=== PATIENT | female | born 1990 | race Caucasian/White ===

== ENCOUNTER 2019-08-09 23:29 | Emergency (ER) | payer BC, SELFPAY ==
[2019-08-09 23:35] VITALS: BP 142/84; PULSE 86; RESP 18; TEMP 36.5; O2SAT 98
[2019-08-09 23:42] VITALS: BP 142/84; PULSE 86; RESP 18; TEMP 36.5; O2SAT 98
--- NOTE | 2019-08-09 23:47 | W.ED.GENAD ---
Discharge Plan Disposition Patient Disposition: HOME Condition: Good Discharge Details Chief Complaint: Abd Prob Clinical Impression: Biliary colic Primary Care Provider: Lynette العلي ED Provider: Rupesh Rendon Home Meds and New Rx's Prescriptions: No Action No Known Home Meds RF: 0 Discharge Instructions Instructions: Biliary Colic (ED) Additional Instructions: At this time since her pain is completely resolved it is likely that you had a spasm of your gallbladder from the small stones that are in their in the fatty foods that were consumed earlier today. Please do your best to avoid any fatty or greasy foods during her . You have been doing a great job with weight loss and healthy eating, continue to keep this up. Drink plenty of fluids. You can take 1000 mg of Tylenol if needed for pain if it does return. Do not hesitate to call me here in the ED if you have any concerns or return of your symptoms. If you notice any worsening of your symptoms, or any new symptoms such as vomiting, diarrhea, fever, chills, shortness of breath, chest pain, numbness, weakness, or fainting , please return immediately to the emergency department for reevaluation. Please follow up with your primary care provider as soon as possible for reassessment and reevaluation. As always, it was a pleasure participating in your medical care today. Medical Decision Making 29-year-old female who is currently 8 to 10 weeks , uncertain on the age, who presents with brief episode of epigastric pain that happened about an hour ago. Patient states that over the last year or so she has lost 40 pounds, she has been eating healthy, however tonight she was at a barbecue and she ate greasy burgers, potato salad, and then roughly 45 minutes to an hour before her symptoms came on she also had a notably greasy and large amount of buffalo wing sauce/dip. Roughly 30 to 45 minutes after ingesting that last bit she had what she describes as a twisty crampy-like pain in the right upper quadrant with slight radiation to the left. As the pain continued came to the ER for further evaluation but prior to arrival here she had complete resolution of her symptoms. She states that it did slightly radiate to her back on the right. She had some nausea but no vomiting. She denies fever chills diarrhea numbness tingling or weakness. She does have a family history of gallstones. She denies any other abdominal surgeries, urinary complaints, vaginal discharge, pelvic pain. Physical exam demonstrates nontender abdomen, no pain at McBurney's point, negative Rodriguez sign. No pelvic tenderness or epigastric tenderness whatsoever on exam. Stable vital signs, no flank or CVA tenderness. Bedside ultrasound shows intrauterine , right upper quadrant bedside limited ultrasound demonstrates normal gallbladder, nondistended, negative sonographic Rodriguez sign, about 6-8 very small gallstones are present, gallbladder wall thickness less than 3 mm., Gallbladder wall diameter less than 4 cm. No pericholecystic fluid. No clinical evidence on exam of acute cholecystitis on exam, and as her symptoms have completely resolved I suspect she had mild episode of biliary colic secondary to the gallstones and the greasy food. This time no current indication for emergent labs or imaging. Patient is asymptomatic. Will be discharged home with recommendations for avoiding fatty and greasy foods, continuing with her healthy diet, recommending close follow-up with her OB. I have extensively reviewed the treatment plan and discharge instructions with the patient. I have addressed all patient concerns at this time. The patient was made aware of what symptoms to monitor for that would warrant a return to the emergency department. Discussed the plan with the patient, they demonstrate verbal understanding and agreement with our assessment and plan at this time. HPI General Date/Time Provider Initiated Documentation: 08/09/19 23:30. HPI Narrative: 29-year-old female who is currently 8 to 10 weeks , uncertain on the age, who presents with brief episode of epigastric pain that happened about an hour ago. Patient states that over the last year or so she has lost 40 pounds, she has been eating healthy, however tonight she was at a barbecue and she ate greasy burgers, potato salad, and then roughly 45 minutes to an hour before her symptoms came on she also had a notably greasy and large amount of buffalo wing sauce/dip. Roughly 30 to 45 minutes after ingesting that last bit she had what she describes as a twisty crampy-like pain in the right upper quadrant with slight radiation to the left. As the pain continued came to the ER for further evaluation but prior to arrival here she had complete resolution of her symptoms. She states that it did slightly radiate to her back on the right. She had some nausea but no vomiting. She denies fever chills diarrhea numbness tingling or weakness. She does have a family history of gallstones. She denies any other abdominal surgeries, urinary complaints, vaginal discharge, pelvic pain. Related Data Home Medications Medication Instructions Recorded Confirmed Unknown [No Known Home Meds] 08/09/19 08/09/19 Allergies Allergy/AdvReac Type Severity Reaction Status Date / Time No Known Allergies Allergy Unverified 08/09/19 23:40 General Stated Complaint: Abd Prob LYNNE: 3 Review of Systems All systems reviewed & are unremarkable except as noted in HPI and below [facility] Social History Smoking/Tobacco Use Status: Never Alcohol Intake: never Substance use type: does not use Do you feel safe at home: Yes Do you feel safe in your relationship?: Yes Exam Narrative Exam Narrative: 1.Const: Well-nourished, Well-developed, appearing stated age, mildly obese 2.Eyes: PERRL, no conjunctival injection, and symmetrical lids. 3.ENT: Atraumatic external nose and ears. Moist MM. Neck: Symmetric, trachea midline, No thyromegaly. 4.CVS: +S1/S2, No murmurs or gallops. Peripheral pulses 2+ and equal in all extremities. Brisk capillary refill in all extremities. 5.RESP: Unlabored respiratory effort. Clear to auscultation bilaterally. No wheezes rales or rhonchi 6.GI: Soft, Nontender/Nondistended, No hepatosplenomegaly. No guarding or rebound. No pain at McBurney's point, negative Rodriguez sign. Bedside ultrasound shows intrauterine . 7.MSK: Normocephalic/Atraumatic, Extremities w/o deformity or ttp No cyanosis or clubbing, Normal movement of all extremities 8.Skin: Warm, Dry. No rashes or lesions. 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 Sensation grossly intact, no focal neurologic deficits. 10.Psych: (AAO) x3. Appropriate mood and affect Course Vital Signs Vital signs: Vital Signs Temperature 36.5 C 08/09/19 23:35 Pulse 86 08/09/19 23:35 Respiratory Rate 18 08/09/19 23:35 Blood Pressure 142/84 H 08/09/19 23:35 Pulse Oximetry 98 08/09/19 23:35 Temperature 36.5 C 08/09/19 23:42 Temperature Source Skin 08/09/19 23:35 Pulse 86 08/09/19 23:42 Respiratory Rate 18 08/09/19 23:42 Respiratory Effort Non-Labored 08/09/19 23:41 Blood Pressure 142/84 H 08/09/19 23:42 Blood Pressure Position Supine 08/09/19 23:35 Pulse Oximetry 98 08/09/19 23:42 Oxygen Delivery Method Room Air 08/09/19 23:35 Oxygen Flow Rate 0 08/09/19 23:35 Pain Level 0 08/09/19 23:42
== END 2019-08-10 | disposition home or self-care (01) ==
PROVIDERS: Emergency Provider Student in an Organized Health Care Education/Training Program; PCP Internal Medicine
DX: K80.20 Calculus of gallbladder without cholecystitis without obstruction (principal); R10.13 Epigastric pain; O99.611 Diseases of the digestive system complicating pregnancy, first trimester; Z3A.10 10 weeks gestation of pregnancy
CPT/HCPCS: 99282; 99283

== ENCOUNTER 2021-07-20 00:18 | Emergency (ER) | payer OTHER, SELFPAY ==
[2021-07-20 00:27] VITALS: BP 138/92; PULSE 95; RESP 18; TEMP 36.7; O2SAT 98
--- NOTE | 2021-07-20 00:44 | ED.GENADUL_ITS ---
Discharge Plan Disposition Patient Disposition: HOME Condition: Stable Discharge Details Clinical Impression: Abdominal pain Primary Care Provider: Lynette العلي ED Provider: Jame Combs Home Meds and New Rx's Prescriptions: Continued norgestimate-ethinyl estradiol [Sprintec (28)] 0.25-35 mg-mcg tablet 0.25 - 35 tab PO DAILY Label Comments: TAKE 1 TABLET BY MOUTH ONCE DAILY sertraline 50 mg tablet 50 tab PO DAILY Label Comments: TAKE 1 TABLET BY MOUTH ONCE DAILY FOR 90 DAYS Discharge Instructions Instructions: Abdominal Pain (ED) Additional Instructions: your exam and lab work did not show any concerning findings at this time follow up with your primary care provider and general surgeon if you feel more ill, have severe worsening pain or persistent vomit return to the emergency department Medical Decision Making 30 yo female who states she has had intermittent episodes of upper abdomen pain for years, has only been seen here for it and had bedside u/s that was reassuring, comes in with another similar episode. She states she went to bed feeling well and woke up with upper stabbing abdomen pain and radiated to the back. She also had nausea, no vomit. She came here and now states the pain and nausea are gone and has no symptoms. Denies chest pain, dyspnea, fevers, chills. She denies prior surgeries, no alcohol or drug use. She is in no distress on exam. She has no abdomen tenderness, no guarding or rebound. Given brevity of her symptoms suspect this could have been a spasm of the gallbladder and less likely biliary colic, given pain resolved unlikely pancreatitis or cholecystitis. Will check lfts, bilirubin and lipase and reassess. labs unremarkable and she remains stable and still has no abdominal tenderness. Given reassuring exam and labs discussed with pt and will defer CT. Offered to have her return to have formal radiology u/s but she declined as she states her pcp has put in for a surgery consult and wants to have that done first. Discussed following up with her pcp and surgeon and return precautions given Differential Diagnosis Differential Diagnosis: biliary colic, spasm, pancreatitis Medical Records Medical records reviewed: Yes I reviewed the patient's medical records. Lab Data Lab results reviewed: Yes I reviewed the patient's lab results. HPI General Mode of arrival: ambulatory . Date/Time Provider Initiated Documentation: 07/20/21 00:19 . Limitations to Documentation: no limitations . Information obtained by: patient . History of Present Illness 30 year old F presents to the emergency department with the chief complaint of abdomen pain, described as moderate, Quality is described as stabbing, and is localized to the abdomen. Patient started experiencing this hour(s) (1) and it has been now resolved. No relieving factors improve symptom(s), No exacerbating factors reported . Patient notes other (nausea); denies chest pain and fever/chills. Patient did receive the following treatments prior to arrival, none Related Data Home Medications Medication Instructions Recorded Confirmed norgestimate 0.25 mg-ethinyl 0.25 - 35 tab PO DAILY 07/20/21 07/20/21 estradiol 35 mcg tablet (Sprintec (28)) sertraline 50 mg tablet 50 tab PO DAILY 07/20/21 07/20/21 Allergies Allergy/AdvReac Type Severity Reaction Status Date / Time No Known Allergies Allergy Unverified 07/20/21 00:30 General Stated Complaint: Abd Prob LYNNE: 3 Review of Systems All systems reviewed & are unremarkable except as noted in HPI and below Constitutional Constitutional: Denies chills, Denies fever(s) and Denies weakness Cardiovascular Cardiovascular: Denies chest pain and Denies dyspnea Respiratory Respiratory: Denies cough and Denies dyspnea Gastrointestinal Gastrointestinal: Denies vomiting Genitourinary Genitourinary: Denies dysuria Neurologic Neurologic: Denies weakness PFSH All Active Problems (Updated 07/20/21 @ 01:31 by aJme Combs MD) Abdominal pain (Acute) Social History Smoking/Tobacco Use Status: Never Smoking risk assessment performed?: Yes Alcohol Intake: never Substance use type: does not use Do you feel safe at home: Yes Do you feel safe in your relationship?: Yes Exam Const General: no acute distress Orientation: alert HENMT Head: normal to inspection Ears: external ears normal General nose exam: external nose normal Mouth: moist mucous membranes Eyes General: appearance normal, both eyes and all related structures Neck Neck: normal visual inspection Resp Effort & Inspection: normal respiratory effort and able to speak in complete sentences Cardio Rate: regular rate GI Palpation: soft and nontender Skin General skin exam: no rashes or lesions noted Neuro General: patient alert and patient oriented x3 Extrem General: normal to inspection Psych Mental Status: mental status grossly normal Course Vital Signs Vital signs: Vital Signs Temperature 36.7 C 07/20/21 00:27 Pulse 95 H 07/20/21 00:27 Respiratory Rate 18 07/20/21 00:27 Blood Pressure 138/92 H 07/20/21 00:27 Pulse Oximetry 98 07/20/21 00:27 Temperature 36.7 C 07/20/21 00:27 Temperature Source Skin 07/20/21 00:27 Pulse 95 H 07/20/21 00:27 Respiratory Rate 18 07/20/21 00:27 Respiratory Effort 07/20/21 00:32 Blood Pressure 138/92 H 07/20/21 00:27 Blood Pressure Position Sitting 07/20/21 00:27 Pulse Oximetry 98 07/20/21 00:27 Oxygen Delivery Method Room Air 07/20/21 00:27 Oxygen Flow Rate 0 07/20/21 00:27 Pain Level 1 07/20/21 00:33 PAWSS Have you Been Recently Intoxicated or Drunk Within the Last 30 days?: No Have you Ever Experienced Previous Episodes of Alcohol Withdrawal?: No Have you ever Experienced Withdrawal Seizures?: No Have you ever Experienced Delirium Tremens(DT)s?: No Have you ever undergone Alcohol Rehabilitation Treatment (i.e, inpt ot outpatient treatment programs)?: No Have you ever Experienced Blackouts?: No Have you ever Combined Alcohol with other Downers within the last 90 days?: No Have you ever Combined Alcohol with any other Substance of Abuse during the last 90 days?: No Positive Blood Alcohol level on Presentation? [PCS.BAL]: No Evidence of Increased Autonomic Activity (i.e. HR>120, tremor, sweating, agitation, nausea)?: No Result: 0
[2021-07-20 01:01] LABS: Abs Immature Grans 0.04 10^3/uL (0.0-0.06); Absolute Basophil Count 0.03 10^3/uL (0.0-0.2); Absolute Eosinophil Count 0.07 10^3/uL (0.0-0.7); Absolute Lymphocyte Count 3.46 10^3/uL (1.2-3.4); Absolute Monocyte Count 0.53 10^3/uL (0.1-0.8); Absolute Neutrophil Count 5.74 10^3/uL (1.2-6.7); Basophils % 0.3; Eosinophils % 0.7; HCT 38.5 % (36.0-46.0); HGB 12.9 g/dL (11.2-15.7); Immature Grans % 0.4; Lymphocytes % 35.1; MCHC 33.5 % (32.0-36.0); MCV 84 fL (80-95); MPV 9.2 fL (8.0-11.0); Monocytes % 5.4; Neutrophils % 58.1; Platelet Count 259 10^3/uL (130-400); RDW 12.2 % (11.7-14.6); RDW-SD 36.7 fL; WBC 9.87 10^3/uL (4.4-10.8)
[2021-07-20 01:14] LABS: ALT 16 U/L (14-59); AST 10 U/L (15-37); Albumin 3.2 g/dL (3.4-5.0); Alkaline Phosphatase 43 U/L (46-116); Anion Gap 6.2 mmol/L (3-11); BUN 11 mg/dL (7-18); Bilirubin, Direct 0.1 mg/dL (0.0-0.2); Bilirubin, Total 0.2 mg/dL (0.2-1.0); CO2 28.8 mmol/L (21.0-32.0); CREATININE 0.9 mg/dL (0.55-1.02); Calcium 8.6 mg/dL (8.5-10.1); Chloride 104 mmol/L (98-107); Glucose 156 mg/dL (74-106); Lipase 75 U/L (73-393); Potassium 3.8 mmol/L (3.5-5.1); Sodium 139 mmol/L (136-145); Total Protein 6.9 g/dL (6.4-8.2)
[2021-07-20 01:22] LABS: Bilirubin Negative (Negative); Blood Negative (Negative); Clarity Clear (Clear); Glucose Negative (Negative); Ketones Negative (Negative); Leukocyte Esterase Negative (Negative); Nitrite Negative (Negative); Specific Gravity 1.025 (1.005-1.025); Urobilinogen 0.2 EU/dL (Up TO 0.2); pH 6.5 (5-8)
== END 2021-07-20 02:19 | disposition home or self-care (01) ==
PROVIDERS: Emergency Provider Emergency Medicine; PCP Internal Medicine
DX: R10.10 Upper abdominal pain, unspecified (principal)
CPT/HCPCS: 80053; 81025; 83690; 99282; 81003; 82248; 85025

== ENCOUNTER 2021-07-31 03:14 | Emergency (ER) | payer OTHER, SELFPAY ==
[2021-07-31 03:18] VITALS: BP 129/81; PULSE 72; RESP 16; TEMP 36.2; O2SAT 100
--- NOTE | 2021-07-31 03:28 | ED.GENADUL_ITS ---
Discharge Plan Disposition Patient Disposition: HOME Condition: Good Discharge Details Chief Complaint: Abd Prob Clinical Impression: Biliary colic Primary Care Provider: Lynette العلي ED Provider: Rupesh Rendon Home Meds and New Rx's Prescriptions: No Action norgestimate-ethinyl estradiol [Sprintec (28)] 0.25-35 mg-mcg tablet 0.25 - 35 tab PO DAILY Label Comments: TAKE 1 TABLET BY MOUTH ONCE DAILY sertraline 50 mg tablet 50 tab PO DAILY Label Comments: TAKE 1 TABLET BY MOUTH ONCE DAILY FOR 90 DAYS Discharge Instructions Instructions: Biliary Colic (ED), Gallstones (ED) Additional Instructions: At this time your symptoms appear to be consistent with an episode of gallbladder spasm. Please take Motrin/ibuprofen at home. You can take 800 mg every 6 hours. Please follow-up closely with your surgeon at your scheduled appointment. As we discussed together please continue to avoid any fatty, greasy, or dairy-based products. If you notice any worsening of your symptoms, or any new symptoms such as vomiting, diarrhea, fever, chills, shortness of breath, chest pain, numbness, weakness, or fainting , please return immediately to the emergency department for reevaluation. Please follow up with your primary care provider as soon as possible for reassessment and reevaluation. As always, it was a pleasure participating in your medical care today. Referrals: Lynette العلي [Primary Care Provider] - Medical Decision Making This is a 31-year-old female with a past medical history of previous biliary colic, BMI of 40, who is on control, who presents today for evaluation of right upper quadrant pain. Patient states that at about 11:30 PM she developed sharp stabbing right upper quadrant pain that occurred after she began eating ice cream. Patient has been avoiding all fatty and greasy foods otherwise in her diet, but states that she has been eating and occasional ice cream during the summer which is brought about the symptoms. She had identical symptoms about 2 weeks ago after ice cream as well. She has a scheduled appointment with a local surgeon for discussion of her gallbladder later this month. She has taken Tylenol without any improvement of her symptoms. She denies any other complaints at this time. No other modifying factors. Physical exam demonstrates mild right upper quadrant tenderness. No signs of an acute surgical abdomen. Bedside limited ultrasound demonstrates small amount of biliary sludge and gallstones. Gallbladder with on short axis is 3 cm, gallbladder wall with is 2.8 mm. Symptoms inconsistent with acute cholecystitis. Discussed risks and benefits of imaging/CT imaging there is no formal ultrasonography is available at this time. Patient would like to hold off on CT imaging currently. We will get basic labs, evaluate for biliary function, treat the patient's pain, monitor closely and reassess. 4:38 AM Patient's laboratory work-up has returned normal. Patient feels well. Abdominal pain has completely resolved. Patient feels comfortable going home. Repeat exam continues to show no signs of an acute surgical abdomen. Now she has no right upper quadrant tenderness. Negative Rodriguez sign. Symptoms at this time are consistent with biliary spasm or colic and have now resolved. Recommend continued close outpatient follow-up with surgery. No indication for emergent imaging at this time. Discussed importance of dietary changes. I have extensively reviewed the treatment plan and discharge instructions with the patient. I have addressed all patient concerns at this time. The patient was made aware of what symptoms to monitor for that would warrant a return to the emergency department. Discussed the plan with the patient, they demonstrate verbal understanding and agreement with our assessment and plan at this time. The documentation in this chart was dictated using [employer] dictation software. Please excuse any dictation errors. HPI General Date/Time Provider Initiated Documentation: 07/31/21 03:15 . HPI Narrative: This is a 31-year-old female with a past medical history of previous biliary colic, BMI of 40, who is on control, who presents today for evaluation of right upper quadrant pain. Patient states that at about 11:30 PM she developed sharp stabbing right upper quadrant pain that occurred after she began eating ice cream. Patient has been avoiding all fatty and greasy foods otherwise in her diet, but states that she has been eating and occasional ice cream during the summer which is brought about the symptoms. She had identical symptoms about 2 weeks ago after ice cream as well. She has a scheduled appointment with a local surgeon for discussion of her gallbladder later this month. She has taken Tylenol without any improvement of her symptoms. She denies any other complaints at this time. No other modifying factors. Related Data Home Medications Medication Instructions Recorded Confirmed norgestimate 0.25 mg-ethinyl 0.25 - 35 tab PO DAILY 07/20/21 07/31/21 estradiol 35 mcg tablet (Sprintec (28)) sertraline 50 mg tablet 50 tab PO DAILY 07/20/21 07/31/21 Allergies Allergy/AdvReac Type Severity Reaction Status Date / Time No Known Allergies Allergy Unverified 07/31/21 03:21 General Stated Complaint: Abd Prob LYNNE: 3 Review of Systems All systems reviewed & are unremarkable except as noted in HPI and below PFSH All Active Problems (Updated 07/31/21 @ 04:40 by Rupesh Rendon DO) Abdominal pain (Acute) Biliary colic (Acute) Social History Smoking/Tobacco Use Status: Never Smoking risk assessment performed?: Yes Alcohol Intake: never Substance use type: does not use Do you feel safe at home: Yes Do you feel safe in your relationship?: Yes Exam Narrative Exam Narrative: 1.Const: Well-nourished, Well-developed, appearing stated age 2.Eyes: PERRL, no conjunctival injection, and symmetrical lids. 3.ENT: Atraumatic external nose and ears. Moist MM. Neck: Symmetric, trachea midline, No thyromegaly. 4.CVS: +S1/S2, No murmurs or gallops. Peripheral pulses 2+ and equal in all extremities. Brisk capillary refill in all extremities. 5.RESP: Unlabored respiratory effort. Clear to auscultation bilaterally. No wheezes rales or rhonchi 6.GI: Soft, nondistended. No guarding or rebound. Mild right upper quadrant tenderness on deep palpation. Negative sonographic Rodriguez sign. No pain at McBurney's point. 7.MSK: Normocephalic/Atraumatic, Extremities w/o deformity or ttp No cyanosis or clubbing, Normal movement of all extremities 8.Skin: Warm, Dry. No rashes or lesions. 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 Sensation grossly intact, no focal neurologic deficits. 10.Psych: (AAO) x3. Appropriate mood and affect Course Vital Signs Vital signs: Vital Signs Temperature 36.2 C L 07/31/21 03:18 Pulse 72 07/31/21 03:18 Respiratory Rate 16 07/31/21 03:18 Blood Pressure 129/81 07/31/21 03:18 Pulse Oximetry 100 07/31/21 03:18 Temperature 36.2 C L 07/31/21 03:18 Temperature Source Skin 07/31/21 03:18 Pulse 72 07/31/21 03:18 Respiratory Rate 16 07/31/21 03:18 Respiratory Effort Non-Labored 07/31/21 03:22 Blood Pressure 129/81 07/31/21 03:18 Pulse Oximetry 100 07/31/21 03:18 Pain Level 9 07/31/21 03:18
[2021-07-31] MEDS: Ketorolac 15 MG/ML VIAL IVP (03:43)
[2021-07-31] MEDS: MORPHine 4 MG/ML SYR IVP (03:43)
[2021-07-31] MEDS: Normal Saline 1,000 ML 1000 ML IV (03:44)
[2021-07-31 04:06] LABS: ALT 14 U/L (14-59); AST 11 U/L (15-37); Abs Immature Grans 0.03 10^3/uL (0.0-0.06); Absolute Basophil Count 0.03 10^3/uL (0.0-0.2); Absolute Eosinophil Count 0.04 10^3/uL (0.0-0.7); Absolute Lymphocyte Count 2.29 10^3/uL (1.2-3.4); Absolute Monocyte Count 0.41 10^3/uL (0.1-0.8); Absolute Neutrophil Count 7.01 10^3/uL (1.2-6.7); Albumin 3.2 g/dL (3.4-5.0); Alkaline Phosphatase 47 U/L (46-116); Anion Gap 9.3 mmol/L (3-11); BUN 8 mg/dL (7-18); Basophils % 0.3; Bilirubin, Total 0.2 mg/dL (0.2-1.0); CO2 24.7 mmol/L (21.0-32.0); CREATININE 0.9 mg/dL (0.55-1.02); Calcium 8.5 mg/dL (8.5-10.1); Chloride 103 mmol/L (98-107); Eosinophils % 0.4; Glucose 154 mg/dL (74-106); HCT 38.2 % (36.0-46.0); Immature Grans % 0.3; Lipase 62 U/L (73-393); Lymphocytes % 23.3; MCV 82 fL (80-95); MPV 9.2 fL (8.0-11.0); Monocytes % 4.2; Neutrophils % 71.5; Platelet Count 267 10^3/uL (130-400); Potassium 3.9 mmol/L (3.5-5.1); RBC 4.65 10^6/uL (3.93-5.22); RDW 12.1 % (11.7-14.6); RDW-SD 36.3 fL; Sodium 137 mmol/L (136-145); Total Protein 7.2 g/dL (6.4-8.2); WBC 9.81 10^3/uL (4.4-10.8)
[2021-07-31 04:43] VITALS: BP 147/94; PULSE 89; RESP 18; O2SAT 98
== END 2021-07-31 04:48 | disposition home or self-care (01) ==
PROVIDERS: Emergency Provider Student in an Organized Health Care Education/Training Program; PCP Internal Medicine
DX: K80.50 Calculus of bile duct without cholangitis or cholecystitis without obstruction (principal)
CPT/HCPCS: 80053; 83690; 96361; 96374; 96375; 85025; J1885; J2270

== ENCOUNTER 2021-09-04 02:54 | Outpatient (CLI) | payer OTHER, SELFPAY ==
[2021-09-04 12:46] LABS: Source Nasal/Nares
[2021-09-04 15:37] LABS: COVID-19 PCR Negative (Negative)
== END 2021-09-04 02:55 | disposition home or self-care (01) ==
PROVIDERS: PCP Internal Medicine; Visit Provider Surgery
DX: Z20.822 Contact with and (suspected) exposure to COVID-19 (principal); Z01.818 Encounter for other preprocedural examination
CPT/HCPCS: 87635

== ENCOUNTER 2021-09-06 07:52 | Day surgery (SDC) | payer OTHER, SELFPAY ==
[2021-09-06] VITALS (9 sets, daily range): BP systolic 119–140; BP diastolic 60–88; PULSE 78–100; RESP 16–27; TEMP 36.5–36.6; O2SAT 93–99; BMI 40.6
--- NOTE | 2021-09-06 06:21 | W.PM.OP ---
Date of service: 09/06/21 Time of Service: 11:31 Operative Note Operative Note DATE OF PROCEDURE: 09/06/21 PRE-OP DIAGNOSIS: Biliary Colic POST-OP DIAGNOSIS: same PROCEDURE: Laparoscopic Cholecystectomy SURGEON: Fior Esparza ADVERTISING ACCOUNT EXECUTIVE: Jennifer Banda Refer to Anesthesia Record ESTIMATED BLOOD LOSS: 25 PATHOLOGY: other (gallbladder) COMPLICATIONS: None Patient's condition: stable Indications: Ms. Elizabeth is a pleasant 31-year-old female with biliary colic.? The episodes of pain have become more frequent and also are lasting upwards of 3 hours.? She has been in the emergency department twice over the last few months.? I discussed the procedure with her in detail and reasons that I would go from laparoscopic to open.? We reviewed the risks, benefits and complications.? We discussed postcholecystectomy diarrhea as well as cholecystectomy syndrome.? These are both rare complications.? I did discuss with her that at this time the cholecystectomy has not emergent.? We would do this for chronic comfort.? Because she has been in the ER twice now she would like to proceed with laparoscopic cholecystectomy. Risks, benefits, complications were reviewed with the patient in the office.? Complications include but are not limited to bleeding, infection, injury to stomach, small bowel and large bowel, injury to the pancreas, injury to the common bile duct necessitating drainage and referral to tertiary center for repair, bile leak, adverse reactions to the medications, complications of intubation including a sore throat or injury to the uvula, ID, stroke and even .? Questions were entertained and answered to her satisfaction and she wished to proceed.? No guarantees were given or implied. Proceed with laparoscopic cholecystectomy Findings: adhesions of omentum to the galbladder Procedure Description: After informed consent was obtained the patient was brought to the operating room, placed in a supine position and monitors were applied. SCDs were applied to her lower extremities and she was placed under general anesthesia and intubated without difficulty. Her abdomen was then prepped and draped in a sterile fashion using ChloraPrep. At this point a timeout was done and the patient's name, date of , procedure type, allergies to medications, metal in her body, antibiotic and DVT prophylaxis, and fire risk was assessed. At this point 0.25% Bupivocaine was injected just above the umbilicus into the dermis and subcutaneous tissue. A 5 mm incision was made with an 11 blade. The skin next to the incision was grasped with penetrating towel clamps and while pulling up on the skin a 5 mm port was placed under direct visualization. The abdomen was insuflated and then 3 more ports were placed. A 12 mm port was placed in the subxiphoid area and two 5 mm ports were placed in the right upper quadrant. The liver was inspected and looked normal. The patient's bed was then turned to the left and her head was brought up. The gallbladder was grasped at the body and pushed towards the right shoulder, this allowed me to visualize the neck of the gallbladder. The neck was grasped and pulled towards the right flank and down allowing me to visualize the lymph node. Using a [place] dissector with cautery the lymph node was gently dissected away from the tissues and the fatty tissue was also dissected away. The cystic duct was identified it was normal in size. The duct was dissected 360 degrees using the [place] dissector in order for me to visualize its entrance into the gallbladder. Liver was noted behind it. There were no other structures right behind. Critical view was achieved. 3 clips were placed one proximal and 2 distal and the cystic duct was cut. The cystic artery was then identified and dissected 360 degrees. It was located just medial and posterior to the cystic duct. It was visualized going into the gallbladder. Once dissected 3 more clips were placed one proximal and 2 distal and the artery was cut. Using the hook dissector the gallbladder was then dissected away from the liver bed and placed into an Endo Catch bag and pulled through the 12 mm port site. The 12 mm port was placed back into the abdomen under direct visualization. The liver bed was inspected no bleeding was noted. The abdomen was then irrigated with a liter of normal saline until the effluent was clear. Once all the fluid was suctioned out, the 12 mm and the 2 right upper quadrant ports were removed under direct visualization and no bleeding was noted from the fascia. The abdomen was deflated completely and lastly the umbilical port was removed. The skin was cleaned and the incisions were closed with 4-0 Vicryl. The skin was dried and skin affix was applied over the closed incisions. Needle, instrument and sponge counts were correct at the end of the case. At this point the patient was woken up, extubated and taken back to recovery in stable condition. There were no immediate complications.
--- NOTE | 2021-09-06 06:25 | W.PM.DSUDISC ---
Discharge Plan Disposition Patient Disposition: HOME Condition: Good Discharge Details Reason For Visit: Laparoscopic Cholecystectomy Attending Provider: Fior Esparza Primary Care Provider: Lynette العلي Home Meds and New Rx's Prescriptions: New tramadol 50 mg tablet 50 mg PO Q6H PRNQty: 14 0RF Continued norgestimate-ethinyl estradiol [Sprintec (28)] 0.25-35 mg-mcg tablet 0.25 - 35 tab PO HS Label Comments: TAKE 1 TABLET BY MOUTH ONCE DAILY sertraline 50 mg tablet 50 tab PO HS Label Comments: TAKE 1 TABLET BY MOUTH ONCE DAILY FOR 90 DAYS Discharge Instructions Instructions: Laparoscopic Cholecystectomy (DC) Additional Instructions: Activity at Home after surgery: 1. Make sure you walk outside at least 4 times per day 2. You should be able to climb a flight of stairs 3. No driving while in pain or taking pain medications 4. No strenuous activity or heavy lifting for 2 weeks (laparoscopic surgery) Diet, Nutrition, & wound healin. Avoid alcohol until after you are recovered from your surgery 2. Make sure to eat plenty of lean protein (meat, fish, eggs, cottage cheese, beans) 3. Eat a variety of fruits and vegetables. Eat plenty of high fiber foods to avoid constipation. 4. Drink plenty of liquids to stay hydrated and avoid constipation Pain Medications: 1. Tylenol 650mg every 6 hours as needed and Ibuprofen 600 mg every 6 hours as needed. You may alternate between the 2 medications every 3 hours 2. If a narcotic has been prescribed take as directed only for breakthrough pain For Constipation: 1. Take Milk of Magnesia or MiraLax as needed for constipation Other: 1. You may shower daily. Do not scrub the incisions 2. Do not soak the incisions for 1 week 3. You may alternate ice and heat as needed for pain and swelling Wound Care: 1. Keep the incisions clean and dry Please call our office if you develop: 1. Fevers >101.5 2. Nausea or Vomiting 3. Worsening pain 4. Redness and thick discharge from the wounds If after hours please call the Hospital at and ask to speak to the on-call surgeon Referrals: Jennifer Banda PA [[facility]] - Activity:: Activity as Tolerated Diet:: low fat Discharge Orders Discharge Orders: Discharge Order (Routine); Ordered 09/06/21 Ordered By: Fior Esparza
[2021-09-06] MEDS: Gabapentin 300 MG CAP PO (08:17)
[2021-09-06] MEDS: Celecoxib 200 MG CAP PO (08:17)
[2021-09-06] MEDS: Acetaminophen 500 MG TAB 1000 MG PO (08:17)
[2021-09-06] MEDS: Lactated Ringers 1,000 ML 80 ML IV (08:42)
--- NOTE | 2021-09-06 09:25 | W.ANESPRE ---
General Info Date of Service Date Performed: 09/06/21 Height: 5 ft 6 in Weight: 114.2 kg Body Mass Index (BMI): 40.6 Surgical Procedure: Operation Date: 09/06/21 09:40 Proposed Procedure Side Surgeon p Cholecystectomy Laparoscopic Fior Esparza MD Meds Allergies and Home Medications Allergies Allergy/AdvReac Type Severity Reaction Status Date / Time No Known Allergies Allergy Unverified 09/06/21 08:15 Home Medication Medication Instructions Recorded norgestimate 0.25 mg-ethinyl 0.25 - 35 tab PO HS 07/20/21 estradiol 35 mcg tablet (Sprintec (28)) sertraline 50 mg tablet 50 tab PO HS 07/20/21 Current Visit Medications: Current Medications Generic Name Dose Route Start Last Admin Trade Name Freq PRN Reason Stop Dose Admin Acetaminophen 1,000 mg 09/06/21 06:00 09/06/21 08:17 Acetaminophen 500 Mg Tab PO 10/05/21 23:59 1,000 mg PREOP ELIER Administration Celecoxib 200 mg 09/06/21 06:00 09/06/21 08:17 Celecoxib 200 Mg Cap PO 10/05/21 23:59 200 mg PREOP ELIER Administration Gabapentin 300 mg 09/06/21 06:00 09/06/21 08:17 Gabapentin 300 Mg Cap PO 10/05/21 23:59 300 mg PREOP ELIER Administration Ringer's Solution 1,000 mls @ 80 mls/hr 09/06/21 06:00 09/06/21 08:42 IV 10/05/21 23:59 80 mls/hr INFUSION ELIER Administration Cefazolin Sodium/Dextrose 2 gm in 50 mls @ 100 mls/hr 09/06/21 06:00 Ancef Duplex IVPB 10/05/21 23:59 PREOP ELIER Ondansetron HCl 4 mg/ Sodium 52 mls @ 200 mls/hr 09/06/21 06:25 Chloride IVPB Q6H PRN PRN IV Miscellaneous Supplies 1 each 09/06/21 06:00 Iv Access IV 10/05/21 23:59 DIRECTED ELIER Sodium Chloride 0 ml 09/06/21 06:00 Normal Saline Flush 10 Ml Syr IV 10/05/21 23:59 PRN PRN Sodium Chloride 0 ml 09/06/21 06:00 Normal Saline 10 Ml Vial IJ 10/05/21 23:59 DIRECTED PRN Sterile Water 0 ml 09/06/21 06:00 Water,Injection,Sterile 10 Ml Vial IJ 10/05/21 23:59 DIRECTED PRN Tramadol HCl 50 mg 09/06/21 06:25 Tramadol 50 Mg Tab PO Q6H PRN PRN Pain PFSH Medical History Medical History Depression Surgical History Surgical History History of tonsillectomy and adenoidectomy Hx of surgical procedure mole removal from hand [place] teeth removed Tobacco Smoking/Tobacco Use Status: Never Alcohol Alcohol Intake: never Substance Use Substance use: Never Substance use type: does not use Prental History History 1 Para 1 Hx # Term Pregnancies Multiple births Hx # Pregnancies 1 Ectopic pregnancies AB induced Hx Number of Living Children AB spontaneous Vital Signs and Lab Results Vital Signs Most Recent Vital Signs in EMR: Most Recent Vital Signs Temp Pulse Resp BP Pulse Ox 36.6 C 87 18 140/80 99 09/06/21 08:02 09/06/21 08:02 09/06/21 08:02 09/06/21 08:02 09/06/21 08:02 Point of Care Results Point of Care Results: POC- Test(urine) Negative 09/06/21 08:02 Lab Results Blood Type / Crossmatch: No Data to Display Complete Blood Count: No Data to Display Complete Metabolic Panel: No Data to Display Liver Function Panel: No Data to Display Coagulation Panel: No Data to Display Cardiac Panel: No Data to Display Arterial Blood Gas: No Data to Display Venous Blood Gas: No Data to Display Pancreas Panel: No Data to Display Thyroid Panel: No Data to Display Infectious Disease: Coronavirus (COVID-19)(PCR) Negative (Negative) 09/04/21 07:00 Coronavirus 2019 Source Nasal/Nares 09/04/21 07:00 Blood Cultures: No Data to Display Toxicology Panel: No Data to Display Panel: No Data to Display Anesthesia Assessment and Plan Anesthesia History Personal History: No History of Anesthesia Complications Family History: No Family History of Anesthesia Complications Exercise Tolerance Exercise Tolerance: Metabolic Equivalents>4 Pertinent Negatives Pertinent Negatives: No Symptoms of GERD, No Major Cardiovascular Symptoms or Complaints, No Major Pulmonary Symptoms or Complaints and No History of CVA/TIA Cardiac & Pulmonary Exam Cardiac Exam: Normal S1/S2 Heart Sounds Pulmonary Exam: Clear Bilateral Breath Sounds Implantable Cardiac Device Does patient have a Pacemaker or an ICD?: No Airway Exam Known Difficult Airway: No Mallampati Class: 2 Mouth Opening: Normal (> 3cm) Thyromental Distance: Greater than 3 cm Neck Range of Motion: Full ROM Neck Circumference: Normal Teeth Condition: Normal Dentition ASA Classification ASA Score: ASA 2 Emergency Case?: No NPO Status NPO Status: NPO Clears >2 hours, Solids >8 hours Status Status: Negative HCG Anesthesia Plan Resuscitation Status: Full Code Anesthesia Technique: General Anesthesia Airway Planned: Endotracheal Tube Monitors Used: Standard Monitors
[2021-09-06] MEDS: ceFAZolin 2 GM/50 ML BAG IVPB (09:52)
--- NOTE | 2021-09-06 10:35 | GB_PTH ---
PATIENT: Saray Elizabeth LOC: [facility] U#:[id number] AGE/SX: 31/F ROOM: RE09/06/[address]: Fior Esparza MD : 1990 BED: DIS: 09/06/2021 SPEC #: [id number] RECD: 09/06/21 12:46 STATUS: MACY REYobany #: [id number] NOHELIA: 09/06/21 10:[address]: Fior Esparza DEPT: Surgical Specimen RECD BY: Reena Raines ENTERED: 09/06/21 12:46 SP TYPE: GB OTHR DR: Lynette العلي Tissues: 1 - GALLBLADDER Procedures: GROSS AND MICRO LEVEL 3 Comments: [id number]
[2021-09-06] MEDS: Bupivacaine 0.25% Pres-Free 30 ML VIAL (10:37)
[2021-09-06] MEDS: fentaNYL 100 MCG/2 ML VIAL IVP (11:19)
[2021-09-06] MEDS: traMADol 50 MG TAB PO (12:44)
--- NOTE | 2021-09-06 13:11 | W.ANESPOSTOP ---
Postoperative Evaluation Date, Time and Location Date Performed: 09/06/21 Time Performed: 13:11 Patient Location: Day Surgery Unit Vital Signs Most Recent Imported Vital Signs: Most Recent Vital Signs Temp Pulse Resp BP Pulse Ox 36.6 C 95 H 18 139/88 98 09/06/21 12:27 09/06/21 12:27 09/06/21 12:27 09/06/21 12:27 09/06/21 12:27 Pain Score Most Recent Pain Score: Most Recent Pain Score Pain Level 6 09/06/21 12:27 Assessment Mental Status: Awake (Alert & Oriented to Patient Baseline) Airway and Respiratory Function: Patent airway with normal (patient baseline) respiratory exam Cardiovascular Function: Hemodynamically Stable Hydration Status: Adequately Hydrated Nausea & Vomiting: No Nausea or Vomiting Pain: Pain is tolerable per patient Peripheral Nerve Block: Patient did not receive a nerve block
== END 2021-09-06 13:35 | disposition home or self-care (01) ==
PROVIDERS: PCP Internal Medicine; Visit Provider Surgery
PROC: 0FT44ZZ Resection of Gallbladder, Percutaneous Endoscopic Approach (ICD-10-PCS; CPT 47562; principal; 2021-09-06 09:30)
DX: K80.10 Calculus of gallbladder with chronic cholecystitis without obstruction (principal); K82.8 Other specified diseases of gallbladder
CPT/HCPCS: 47562; 81025; 88304; J0690; J1100; J1885; J2250; J2405; J2704; J3010

== ENCOUNTER 2023-01-09 08:39 | Outpatient (CLI) | payer OTHER, SELFPAY ==
[2023-01-09 08:51] LABS: Abs Immature Grans 0.03 10^3/uL (0.0-0.06); Absolute Basophil Count 0.03 10^3/uL (0.0-0.2); Absolute Eosinophil Count 0.06 10^3/uL (0.0-0.7); Absolute Lymphocyte Count 2.16 10^3/uL (1.2-3.4); Absolute Monocyte Count 0.33 10^3/uL (0.1-0.8); Absolute Neutrophil Count 6.31 10^3/uL (1.2-6.7); Basophils % 0.3; Eosinophils % 0.7; HCT 41.2 % (36.0-46.0); Immature Grans % 0.3; Lymphocytes % 24.2; MCH 28.1 pg (27.0-33.0); MCV 83 fL (80-95); MPV 9.3 fL (8.0-11.0); Monocytes % 3.7; Neutrophils % 70.8; Platelet Count 311 10^3/uL (130-400); RBC 4.98 10^6/uL (3.93-5.22); RDW 12.4 % (11.7-14.6); RDW-SD 37.5 fL; WBC 8.92 10^3/uL (4.4-10.8)
[2023-01-09 09:13] LABS: Hemoglobin A1C 5.8 % (<5.7)
[2023-01-09 09:42] LABS: Iron 53 ug/dL (50-170); Total Iron Binding Capacity 383 ug/dL (250-450); Transferrin Sat 14 % (15-50)
[2023-01-09 09:44] LABS: ALT 43 U/L (14-59); AST 33 U/L (15-37); Albumin 3.5 g/dL (3.4-5.0); Alkaline Phosphatase 42 U/L (46-116); Anion Gap 8.6 mmol/L (3-11); BUN 8 mg/dL (7-18); Bilirubin, Total 0.3 mg/dL (0.2-1.0); CO2 27.4 mmol/L (21.0-32.0); CREATININE 0.8 mg/dL (0.55-1.02); Calcium 9.3 mg/dL (8.5-10.1); Calculated LDL 84 mg/dL (<100); Chloride 105 mmol/L (98-107); Cholesterol 161 mg/dL (<200); Estimated GFR 100.96 (mL/min/1.73m2); Ferritin 99 ng/mL (8-252); Glucose 119 mg/dL (74-106); HDL Cholesterol 57 mg/dL (40-60); Potassium 4.1 mmol/L (3.5-5.1); Sodium 141 mmol/L (136-145); TSH 1.68 uIU/mL (0.36-3.74); Triglyceride 104 mg/dL (<150); Vitamin B12 331 pg/mL (193-986)
[2023-01-09 10:37] LABS: Vitamin D 25 Total 17.3 ng/mL (30-100)
[2023-01-09 18:07] LABS: Parathyroid Hormone,Intact 50 pg/mL (19-88)
[2023-01-10 09:22] LABS: Insulin 21.1 uIU/mL (<29.0)
[2023-01-15 11:44] LABS: Thiamine (Vitamin B1), WB 148 nmol/L (70-180)
== END 2023-01-09 08:40 | disposition home or self-care (01) ==
LOC: LBO 08:39
PROVIDERS: PCP Internal Medicine; Visit Provider Surgery
DX: E66.01 Morbid (severe) obesity due to excess calories (principal); Z68.41 Body mass index [BMI] 40.0-44.9, adult; Z71.89 Other specified counseling
CPT/HCPCS: 36415; 80053; 80061; 82306; 82607; 82728; 82746; 83036; 83525; 83540; 83550; 83970; 84425; 84443; 85025

== ENCOUNTER 2023-09-21 15:47 | Emergency (ER) | payer OTHER, SELFPAY ==
[2023-09-21] VITALS (13 sets, daily range): BP systolic 157; BP diastolic 82; PULSE 89–104; RESP 12–22; TEMP 36.3; O2SAT 98–100
--- NOTE | 2023-09-21 15:45 | RT.EKG_ITS ---
APPROVED REPORT Exam: Resting ECG Reason for Exam: Dizzy, Chest Pressure Patient Location: E HR:89 bpm ECG Measurements Heart Rate 89 AXIS LA 144 P 43 QRSd 79 QRS 22 QT 345 T 55 QTc 420 Conclusion Sinus rhythm...normal P axis, V-rate 60- 99 Narrow complex normal sinus rhythm at a rate of 89. Normal axis. Intervals within normal limits. N o ST segment abnormalities. T wave flattening in aVL. No acute injury pattern. No prior for compar michael.
--- NOTE | 2023-09-21 15:49 | ED.GENADUL_ITS ---
Discharge Plan Disposition Patient Disposition: Home Discharge Details Clinical Impression: Chest pressure Primary Care Provider: Lynette العلي ED Provider: Byron Palmer Home Meds and New Rx's Prescriptions: No Action norgestimate-ethinyl estradiol [Sprintec (28)] 0.25-35 mg-mcg tablet 0.25 - 35 tab PO HS Patient Comments: TAKE 1 TABLET BY MOUTH ONCE DAILY sertraline 50 mg tablet 50 tab PO HS Patient Comments: TAKE 1 TABLET BY MOUTH ONCE DAILY FOR 90 DAYS Discharge Instructions Additional Instructions: You are seen in the emergency department for your chest pressure. Your blood work shows no sign of heart attack nor any signs of any blood clots in your lungs. As we discussed please follow-up with your surgical team next week. Please turn to the emergency department if you pass out or develop nausea or vomiting that does not stop or if you develop any fevers. Discharge Data Discharge Date/Time-TO BE ENTERED AT DEPARTURE: 09/21/23 18:07 HPI General Date/Time Provider Initiated Documentation: 09/21/23 15:49 . HPI Narrative: MDM This is an overall very well-appearing afebrile and not tachycardic 33-year-old female 2 weeks postop status post gastroplasty with Avelina-en-Y with chest pain dizziness concerning for the possibility of PE for which patient will receive D- dimer testing as she is low risk from a [place] perspective. Will tolerate a D- dimer up to 1000 based on years criteria. Given recent Avelina-en-Y hypogylcemia is certainly a possibility so will obtain a CMP. Doubt internal hernia & SBO given no emesis. Doubt stomal stenosis given tolerating PO. Low suspicion for leak given no abdominal pain. She is neurologically intact so my suspicion for CVA is low so do not feel she requires an MRI. No tearing quality to suggest aortic dissection. No pain out of proportion to suggest necrotizing soft tissue infection. No trauma to the chest and equal breath sounds without pneumothorax. No rash to chest to suggest zoster. No positional component so doubt pericarditis. Not hypotensive nor dialysis patient so doubt tamponade. No cough nor fevers doubt pneumonia. ECG nonischemic and given duration of symptoms we will send single troponin to assess for ACS. 5:10 PM Negative troponin. Negative hCG. CBC lacks anemia thrombocytopenia and leukocytosis. Comprehensive metabolic panel showing mild anion gap but no hyperglycemia and normal bicarbonate??not consistent with DKA. Normal reassuring lipase. 5:53 PM D-dimer < 1,000 so will defer CTA PE based on YEARS criteria. Patient felt improved in the ED. We discussed the reassuring evaluation. She was tolerating p.o. I initially ordered fluids however she did not receive these. We discussed ED return for any pain that radiated to her arm pain associated with diaphoresis any nausea or vomiting or any fevers. She understood her return indications and was discharged with empiric trial of expectant outpatient management. Chronic conditions affecting the care of the patient: Recent bariatric surgery History obtained from an outside historian: N/A External record review: [facility] [place] EMR No acute cardiopulmonary process diagnostic interpretations performed by me: Per my independent interpretation chest x-ray shows: Per my independent interpretation EKG shows: Narrow complex normal sinus rhythm at a rate of 89. Normal axis. Intervals within normal limits. No ST segment abnormalities. T wave flattening in aVL. No acute injury pattern. No prior for comparison. ]Medications: N/A Social determinants of health affecting disposition: N/A Management discussed with: N/A Treatment/interventions considered: IV fluids but deferred based on patient tolerated p.o. Response to therapies provided: N/A HPI This is a 33-year-old female who is 2 weeks status post gastroplasty with Avelina-en-Y right emergency department via private vehicle in the setting of mild chest pressure intermittently for the past several weeks. She felt increasingly dizzy today. She has been on liquid diet for the past 2 weeks although she began taking soft foods today. She intermittently has had a pressure in her chest. It resolved spontaneously. It is does not radiate. She does occasionally note some shortness of breath. She denies history of PEs and DVTs. No calf pain. No cough. No fevers. No abdominal pain nausea nor vomiting. No history of diabetes. She was off of her oral contraceptive pills before surgery and has remained off of them since surgery. Exam General: Well-appearing in no acute distress speaking in complete sentences. Head: Normocephalic, atraumatic. Eye: Extraocular eye movements intact. No conjunctival injection. No scleral icterus. Ear, nose, mouth, throat: Grossly normal inspection. Normal voice, handling se cretions normally. Neck: Trachea midline. Cardiovascular: Well-perfused distal extremities. Regular rate and rhythm Respiratory: Nonlabored respiration. Clear lungs bilaterally Gastrointestinal: Nondistended abdomen. Incision scars appear to be healing well. Musculoskeletal: No edema. Moving all 4 extremities spontaneously. Skin: Normal for age and race, grossly normal temperature and turgor. No acute rash. Neurologic: Alert and appropriate, no apparent acute deficits. Psychiatric: Mood and manner are appropriate. Grooming and personal hygiene are appropriate. Related Data Home Medications ?Medication ?Instructions ?Recorded ?Confirmed norgestimate 0.25 mg-ethinyl 0.25 - 35 tab PO HS 07/20/21 09/21/23 estradiol 35 mcg tablet (Sprintec (28)) sertraline 50 mg tablet 50 tab PO HS 07/20/21 09/21/23 Allergies Allergy/AdvReac Type Severity Reaction Status Date / Time No Known Allergies Allergy Unverified 09/21/23 15:57 General LYNNE: 3 Medical Decision Making Quality:SDOH Health Related Social Needs: No Data to Display PFSH All Active Problems (Updated 09/21/23 @ 17:51 by Byron Palmer MD) Chest pressure (Acute) Medical History (Updated 09/21/23 @ 17:51 by Byron Palmer MD) Depression Surgical History Hx of surgical procedure mole removal from hand [place] teeth removed History of tonsillectomy and adenoidectomy Family History (Updated 08/15/21 @ 07:48 by Fior Esparza MD) Father Depression Paternal Grandfather Diabetes Paternal Grandmother Diabetes Breast cancer Maternal Grandfather No problems noted. Maternal Grandmother Breast cancer Social History Smoking/Tobacco Use Status: Never Smoking risk assessment performed?: Yes Alcohol Intake: never Drug use: Never Substance use type: does not use Housing: house Current gender identity: female Do you feel safe at home: Yes Do you feel safe in your relationship?: Yes History History 1 Para 1 Hx # Term Pregnancies Multiple births Hx # Pregnancies 1 Ectopic pregnancies AB induced Hx Number of Living Children AB spontaneous
--- NOTE | 2023-09-21 16:15 | DI.RAD_ITS ---
Exam(s) XR CHEST 2V PA LATERAL EXAM: XR CHEST 2V PA LATERAL CLINICAL HISTORY: Chest pressure TECHNIQUE: 2D digital imaging was performed of the chest. Two images were obtained. PA and lateral views were obtained. COMPARISON: No exams were available for comparison FINDINGS: MEDIASTINUM: Normal. HEART: Normal. PULMONARY VASCULATURE: Normal. LUNGS: Clear. PLEURAL SPACE: No pleural effusion or pneumothorax. BONE:Within normal limits for the patient's age. OTHER FINDINGS:Normal. IMPRESSION: No acute pulmonary findings. DATA REPOSITORY: RADIATION DOSE DELIVERED:
[2023-09-21 16:44] LABS: Abs Immature Grans 0.02 10^3/uL (0.0-0.06); Absolute Basophil Count 0.03 10^3/uL (0.0-0.2); Absolute Eosinophil Count 0.08 10^3/uL (0.0-0.7); Absolute Lymphocyte Count 2.68 10^3/uL (1.2-3.4); Absolute Monocyte Count 0.42 10^3/uL (0.1-0.8); Absolute Neutrophil Count 4.51 10^3/uL (1.2-6.7); Basophils % 0.4 %; HCT 40.7 % (36.0-46.0); HGB 14.1 g/dL (11.2-15.7); Immature Grans % 0.3 %; Lymphocytes % 34.6 %; MCH 28.4 pg (27.0-33.0); MCHC 34.6 % (32.0-36.0); MCV 82 fL (80-95); MPV 10.6 fL (8.0-11.0); Monocytes % 5.4 %; Neutrophils % 58.3 %; Platelet Count 277 10^3/uL (130-400); RBC 4.97 10^6/uL (3.93-5.22); RDW-SD 38.2 fL; WBC 7.74 10^3/uL (4.4-10.8)
--- NOTE | 2023-09-21 17:04 | DI.VRAD_ITS ---
PROCEDURE INFORMATION: Exam: XR Chest Exam date and time: 09/21/2023 4:35 PM Age: 33 years old Clinical indication: Other: Cp TECHNIQUE: Imaging protocol: Radiologic exam of the chest. Views: 2 views. COMPARISON: No relevant prior studies available. FINDINGS: Lungs: Lungs are clear with no infiltrate or nodule. Pleural spaces: Unremarkable. No pleural effusion. No pneumothorax. Heart/Mediastinum: Cardiomediastinal silhouette is normal. Bones/joints: Unremarkable. IMPRESSION: No active cardiopulmonary disease. Dictated and Authenticated by: Thomas Wall MD. Ordering:ADRIANA Matthews MD
[2023-09-21 17:05] LABS: Troponin I < 50 ng/L (< or =60)
[2023-09-21 17:06] LABS: ALT 40 U/L (14-59); AST 19 U/L (15-37); Albumin 4.2 g/dL (3.4-5.0); Alkaline Phosphatase 51 U/L (46-116); Anion Gap 14.9 mmol/L (3-11); BUN 8 mg/dL (7-18); CO2 24.1 mmol/L (21.0-32.0); CREATININE 0.9 mg/dL (0.55-1.02); Calcium 9.5 mg/dL (8.5-10.1); Chloride 101 mmol/L (98-107); Estimated GFR 87.11 (mL/min/1.73m2); Glucose 90 mg/dL (74-106); Lipase 56 U/L (16-77); Potassium 3.6 mmol/L (3.5-5.1); Sodium 140 mmol/L (136-145); Total Protein 7.7 g/dL (6.4-8.2)
[2023-09-21 17:07] LABS: HCG Qual (Serum) Negative
[2023-09-21 17:18] LABS: D-Dimer 964 ng/mlFEU (<500)
== END 2023-09-21 18:07 | disposition home or self-care (01) ==
PROVIDERS: Emergency Provider Emergency Medicine; PCP Internal Medicine
DX: R07.89 Other chest pain (principal); R42 Dizziness and giddiness; F41.9 Anxiety disorder, unspecified; Z98.84 Bariatric surgery status
CPT/HCPCS: 36415; 80048; 80053; 83690; 93005; 99285; 71046; 84484; 84703; 85025; 85379; 93010; 99284